=== PATIENT | male | born 1985 | race Two or more races ===

== ENCOUNTER 2018-03-25 18:23 | Emergency (ER) | payer OTHER ==
[~2018-03-25] VITALS: Ht 170.2 cm; Wt 76.0 kg
[2018-03-25 18:41] VITALS: BP 137/85
== END 2018-03-25 20:04 | disposition home or self-care (01) ==
LOC: ER 18:24
DX: S40.862A Insect bite (nonvenomous) of left upper arm, initial encounter (principal); S40.861A Insect bite (nonvenomous) of right upper arm, initial encounter; T78.40XA Allergy, unspecified, initial encounter; F42.4 Excoriation (skin-picking) disorder; Z88.8 Allergy status to other drugs, medicaments and biological substances; W57.XXXA Bitten or stung by nonvenomous insect and other nonvenomous arthropods, initial encounter; X58.XXXA Exposure to other specified factors, initial encounter; Y93.89 Activity, other specified; Y92.89 Other specified places as the place of occurrence of the external cause; Y99.8 Other external cause status
CPT/HCPCS: 99281